=== PATIENT | male | born 1975 | race African-American/Black ===

== ENCOUNTER 2021-04-08 17:38 | Inpatient (IN) | payer OTHER, SELFPAY ==
[2021-04-08 18:25] LABS: #Monocytes 1.5 10x3/uL (0.0-1.1); #Neutrophils 13.8 10x3/uL (1.5-8.4); %Basophils 0.2 % (0.0-2.0); %Lymphocytes 7.1 % (18.0-47.0); %Monocytes 8.8 % (0.0-10.0); %Neutrophils 83.4 % (40.0-75.0); Hemoglobin 15.7 g/dL (13.5-17.5); Mean Corpuscular HGB CONC 27.5 g/dL (32.0-36.0); Mean Corpuscular Hemoglobin 28.5 pg (27.0-33.0); Mean Corpuscular Volume 103.4 fl (81.2-95.1); Mean Platelet Volume 12.4 fl (7.4-10.4); Platelet Count 428 10x3/uL (150-450); RBC Distribution Width 13.9 % (11.5-14.5); Red Blood Cell (RBC) Count 5.51 10x6/uL (4.32-5.72); White Blood Cell (WBC) Count 16.5 10x3/uL (3.5-10.5)
[2021-04-08] MEDS ORDERED: cefTRIAXone\\ROCEPHIN 2 GM VIAL ONE (18:27)
[2021-04-08 18:37] LABS: Actual Bicarbonate (HCO3v) 13 mEq/L (22-28); Calcium, Ionized (venous) 1.34 mmol/L (1.16-1.32); Chloride (VBG) 94 mmol/L (98-106); Hemoglobin (Hb) 17.2 g/dL (13.1-17.2); Potassium (VBG) 6.27 mmol/L (3.70-5.30); Puncture Site Other Site; Sodium 142.7 mmol/L (133-146)
[2021-04-08 18:45] LABS: ALT (SGPT) 75 U/L (8-55); AST (SGOT) 26 U/L (5-34); Albumin 4.5 g/dL (3.5-5.0); Alkaline Phosphatase 152 U/L (40-110); Anion Gap 36 mmol/L (10-20); BUN (Urea Nitrogen) 53 mg/dL (8.9-20.6); Bilirubin, Total 0.3 mg/dL (0.2-1.2); Calc. Creatinine Clearance 0 mL/min (70-130); Calcium 10.8 mg/dL (7.8-10.44); Carbon Dioxide 13 mmol/L (22-29); Chloride 92 mmol/L (98-107); Globulin 4.7 g/dL (2.4-3.5); Potassium 5.7 mmol/L (3.5-5.1); Protein, Total 9.2 g/dL (6.0-8.3); Sodium 135 mmol/L (136-145)
[2021-04-08 19:11] LABS: Glucose 1832 mg/dL (70-105)
[2021-04-08] MEDS ORDERED: INSULIN REGULAR IN 0.9 % NACL 100 UNIT/100 ML BAG ONE (19:13)
[2021-04-08] MEDS ORDERED: Insulin Regular 300 UNITS/3 ML VIAL ONE (19:13)
[2021-04-08 19:31] LABS: SARS-CoV-2 NAA Rapid Test Not Detected (NotDetected)
[2021-04-08 19:58] LABS: Bilirubin Neg (Negative); Blood, Urine 250 (Negative); Clarity Slightly Cloudy (Clear); Glucose, Urine (Dipstick) >=1000 mg/dL (Negative); Ketone, Urine 50 mg/dL (Negative); Leukocyte Negative (Negative); Nitrite Negative (Negative); Protein, Urine (Dipstick) 30 mg/dl (Neg-Trace); Urobilinogen Normal mg/dL (Less than 2)
[2021-04-08 20:07] LABS: RBC/HPF 0-3 HPF (0-3); Renal Epithelial 0-3 HPF (None Seen); Squamous Epithelial 0-3 HPF (0-3); WBC/HPF 0-3 HPF (0-3)
[2021-04-08 20:08] LABS: Bacteria/HPF Rare-Few HPF (None Seen)
[2021-04-08 20:30] LABS: Creatinine, Urine 32.21 mg/dL (63-166); Protein, Urine Random Quant 34 mg/dL (1-14)
[2021-04-08 20:39] LABS: Platelet Morphology Comment Appears Adequate
[2021-04-08] MEDS ORDERED: D5 1/2 NS w/20 mEq KCL 1,000 ML IV PRN (20:59)
[2021-04-08] MEDS ORDERED: Sodium Chloride 0.9% 1,000 ML IV PRN ×4 (20:59)
[2021-04-08] MEDS ORDERED: Electrolyte Replacement Protocol 1 EACH IVPB SCH ×2 (20:59→23:15)
[2021-04-08] MEDS ORDERED: Dextrose 5 %-0.45 % NaCl 1,000 ML IV PRN (20:59)
[2021-04-08] MEDS ORDERED: NS 0.9% w/ 20 MEQ KCL 1,000 ML IV PRN ×2 (20:59)
[2021-04-08 22:13] LABS: Lactic Acid 1.8 mmol/L (0.5-2.2)
[2021-04-08 22:28] VITALS: BMI 30.5
[2021-04-08 22:30] LABS: Anion Gap 29 mmol/L (10-20); BUN (Urea Nitrogen) 48 mg/dL (8.9-20.6); Calc. Creatinine Clearance 32 mL/min (70-130); Calcium 10.7 mg/dL (7.8-10.44); Carbon Dioxide 12 mmol/L (22-29); Chloride 114 mmol/L (98-107); Potassium 4.5 mmol/L (3.5-5.1); Sodium 150 mmol/L (136-145)
[2021-04-08 22:37] LABS: Glucose 1014 mg/dL (70-105); Phosphorus 1.9 mg/dL (2.3-4.7)
[2021-04-08] MEDS: Sodium Chloride 0.45% 1,000 ML IV SCH (23:35)
[2021-04-08] MEDS ORDERED: Potassium Phosphate 15 MMOL in Sodium Chloride 0.9% 250 ML 250 ML IVPB SCH (23:59)
[2021-04-09 00:55] LABS: Glucose 829 mg/dL (70-105)
[2021-04-09 01:24] LABS: Anion Gap 27 mmol/L (10-20); BUN (Urea Nitrogen) 45 mg/dL (8.9-20.6); Calc. Creatinine Clearance 35 mL/min (70-130); Carbon Dioxide 14 mmol/L (22-29); Chloride 119 mmol/L (98-107); Sodium 155 mmol/L (136-145)
[2021-04-09 01:47] LABS: Potassium 4.9 mmol/L (3.5-5.1)
[2021-04-09 02:02] LABS: Glucose 770 mg/dL (70-105)
[2021-04-09] MEDS ORDERED: Lorazepam 2 MG/ML VIAL ONE (02:14)
[2021-04-09] MEDS ORDERED: Sodium Chloride 0.45% 1,000 ML IV SCH (02:15)
[2021-04-09] MEDS ORDERED: Lorazepam 2 MG/ML VIAL SLOW IVP SCH ×2 (02:15→06:00)
[2021-04-09 02:22] LABS: Sodium, Urine Less than 20 mmol/L (Not Available)
[2021-04-09] MEDS: Dextrose 5% in Water 1,000 ML IV SCH ×5 (02:26→18:12)
[2021-04-09 03:00] LABS: Glucose 771 mg/dL (70-105)
[2021-04-09 04:34] LABS: Anion Gap 28 mmol/L (10-20); BUN (Urea Nitrogen) 46 mg/dL (8.9-20.6); Calc. Creatinine Clearance 38 mL/min (70-130); Calcium 10.3 mg/dL (7.8-10.44); Carbon Dioxide 12 mmol/L (22-29); Chloride 120 mmol/L (98-107); Magnesium 3.7 mg/dL (1.6-2.6); Sodium 156 mmol/L (136-145)
[2021-04-09 04:57] LABS: Glucose 773 mg/dL (70-105); Potassium 4.3 mmol/L (3.5-5.1)
[2021-04-09 04:58] LABS: Phosphorus 2.7 mg/dL (2.3-4.7)
[2021-04-09] MEDS: Sodium Chloride 0.45% 1,000 ML IV SCH (04:59)
[2021-04-09 05:30] LABS: Hemoglobin 16.2 g/dL (13.5-17.5); Mean Corpuscular HGB CONC 33.3 g/dL (32.0-36.0); Mean Corpuscular Hemoglobin 28.7 pg (27.0-33.0); Mean Platelet Volume 11.8 fl (7.4-10.4); Platelet Count 405 10x3/uL (150-450); RBC Distribution Width 13.4 % (11.5-14.5); Red Blood Cell (RBC) Count 5.65 10x6/uL (4.32-5.72); White Blood Cell (WBC) Count 18.1 10x3/uL (3.5-10.5)
[2021-04-09 05:33] LABS: Band 3 % (5-11); Lymphocytes 12 % (21-51); Monocytes 6 % (0-10); Neutrophil 79 % (42-75)
[2021-04-09 05:34] LABS: Platelet Morphology Comment Appears Increased
[2021-04-09 05:35] LABS: MDiff Complete? YES
[2021-04-09 05:39] LABS: Anion Gap 24 mmol/L (10-20); BUN (Urea Nitrogen) 44 mg/dL (8.9-20.6); Calc. Creatinine Clearance 40 mL/min (70-130); Calcium 10.4 mg/dL (7.8-10.44); Carbon Dioxide 16 mmol/L (22-29); Chloride 119 mmol/L (98-107); Potassium 3.9 mmol/L (3.5-5.1); Sodium 155 mmol/L (136-145)
[2021-04-09 05:48] LABS: Glucose 707 mg/dL (70-105)
[2021-04-09 07:05] LABS: Glucose 668 mg/dL (70-105)
[2021-04-09 08:25] LABS: Glucose 594 mg/dL (70-105)
[2021-04-09] MEDS: Enoxaparin Sodium 40 MG/0.4 ML SYRINGE SC SCH (09:02)
[2021-04-09] MEDS: Pantoprazole 40 MG VIAL IVP SCH (09:02)
[2021-04-09] MEDS: INSULIN REGULAR IN 0.9 % NACL 100 UNIT in Premix Bag 1 BAG IVPB SCH ×2 (09:09→18:42)
[2021-04-09] MEDS: Sodium Bicarbonate 75 MEQ in Sterile Water Injection 1,000 ML IV SCH ×3 (09:15→22:49)
[2021-04-09 09:42] LABS: Anion Gap 22 mmol/L (10-20); BUN (Urea Nitrogen) 42 mg/dL (8.9-20.6); Calc. Creatinine Clearance 42 mL/min (70-130); Calcium 10.6 mg/dL (7.8-10.44); Carbon Dioxide 20 mmol/L (22-29); Chloride 125 mmol/L (98-107); Glucose 499 mg/dL (70-105); Magnesium 3.5 mg/dL (1.6-2.6); Phosphorus 1.5 mg/dL (2.3-4.7); Potassium 3.9 mmol/L (3.5-5.1); Sodium 163 mmol/L (136-145)
[2021-04-09] MEDS ORDERED: Potassium Phosphate 30 MMOL in Sodium Chloride 0.9% 500 ML IVPB SCH ×2 (10:30→17:30)
[2021-04-09 13:57] LABS: Anion Gap 20 mmol/L (10-20); BUN (Urea Nitrogen) 42 mg/dL (8.9-20.6); Calc. Creatinine Clearance 43 mL/min (70-130); Calcium 9.9 mg/dL (7.8-10.44); Carbon Dioxide 22 mmol/L (22-29); Chloride 124 mmol/L (98-107); Glucose 432 mg/dL (70-105); Magnesium 3.1 mg/dL (1.6-2.6); Phosphorus 1.6 mg/dL (2.3-4.7); Potassium 3.8 mmol/L (3.5-5.1); Sodium 162 mmol/L (136-145)
[2021-04-09] MEDS: cefTRIAXone\\ROCEPHIN 2 GM in Sodium Chloride 0.9% 100 ML IVPB SCH (18:11)
[2021-04-09 18:55] LABS: Anion Gap 19 mmol/L (10-20); BUN (Urea Nitrogen) 40 mg/dL (8.9-20.6); Calc. Creatinine Clearance 49 mL/min (70-130); Calcium 9.6 mg/dL (7.8-10.44); Carbon Dioxide 21 mmol/L (22-29); Chloride 119 mmol/L (98-107); Glucose 452 mg/dL (70-105); Magnesium 2.8 mg/dL (1.6-2.6); Phosphorus 5.5 mg/dL (2.3-4.7); Potassium 4.8 mmol/L (3.5-5.1); Sodium 154 mmol/L (136-145)
[2021-04-09] MEDS: Lorazepam 2 MG/ML VIAL SLOW IVP PRN (21:57)
[2021-04-09 23:23] LABS: Anion Gap 19 mmol/L (10-20); BUN (Urea Nitrogen) 39 mg/dL (8.9-20.6); Calc. Creatinine Clearance 51 mL/min (70-130); Calcium 8.9 mg/dL (7.8-10.44); Carbon Dioxide 14 mmol/L (22-29); Chloride 125 mmol/L (98-107); Glucose 264 mg/dL (70-105); Magnesium 2.4 mg/dL (1.6-2.6); Phosphorus 3.4 mg/dL (2.3-4.7); Potassium 4.5 mmol/L (3.5-5.1); Sodium 153 mmol/L (136-145)
[2021-04-10] MEDS: Dextrose 5% in Water 1,000 ML IV SCH ×2 (00:56→06:37)
[2021-04-10] MEDS: Lorazepam 2 MG/ML VIAL SLOW IVP PRN (02:33)
[2021-04-10] MEDS: Sodium Bicarbonate 75 MEQ in Sterile Water Injection 1,000 ML IV SCH ×5 (03:37→18:52)
[2021-04-10] MEDS ORDERED: Lorazepam 2 MG/ML VIAL ONE (04:26)
[2021-04-10] MEDS ORDERED: Lorazepam 2 MG/ML VIAL SLOW IVP SCH (05:00)
[2021-04-10 05:21] LABS: #Monocytes 1.4 10x3/uL (0.0-1.1); #Neutrophils 8.7 10x3/uL (1.5-8.4); %Basophils 0.3 % (0.0-2.0); %Eosinophils 0.2 % (0.0-6.0); %Lymphocytes 19.4 % (18.0-47.0); %Monocytes 10.8 % (0.0-10.0); %Neutrophils 68.7 % (40.0-75.0); Hemoglobin 15.3 g/dL (13.5-17.5); Mean Corpuscular HGB CONC 33.4 g/dL (32.0-36.0); Mean Corpuscular Hemoglobin 28.7 pg (27.0-33.0); Mean Corpuscular Volume 85.9 fl (81.2-95.1); Mean Platelet Volume 11.8 fl (7.4-10.4); Platelet Count 269 10x3/uL (150-450); RBC Distribution Width 13.7 % (11.5-14.5); Red Blood Cell (RBC) Count 5.33 10x6/uL (4.32-5.72); White Blood Cell (WBC) Count 12.7 10x3/uL (3.5-10.5)
[2021-04-10 05:28] LABS: Albumin 3.4 g/dL (3.5-5.0); Anion Gap 19 mmol/L (10-20); Anion Gap 20 mmol/L (10-20); BUN (Urea Nitrogen) 36 mg/dL (8.9-20.6); Calc. Creatinine Clearance 52 mL/min (70-130); Calcium 8.7 mg/dL (7.8-10.44); Calcium 8.8 mg/dL (7.8-10.44); Carbon Dioxide 25 mmol/L (22-29); Carbon Dioxide 26 mmol/L (22-29); Chloride 113 mmol/L (98-107); Glucose 180 mg/dL (70-105); Glucose 183 mg/dL (70-105); Magnesium 2.2 mg/dL (1.6-2.6); Phosphorus 3.2 mg/dL (2.3-4.7); Phosphorus 3.3 mg/dL (2.3-4.7); Potassium 3.3 mmol/L (3.5-5.1); Sodium 155 mmol/L (136-145)
[2021-04-10] MEDS: INSULIN REGULAR IN 0.9 % NACL 100 UNIT in Premix Bag 1 BAG IVPB SCH ×2 (06:31→17:02)
[2021-04-10] MEDS ORDERED: Dextrose 5 %-0.45 % NaCl 1,000 ML IV SCH (07:00)
[2021-04-10] MEDS ORDERED: Potassium Chloride 10 MEQ in Premix Bag 1 BAG IVPB SCH (08:00)
[2021-04-10] MEDS: Enoxaparin Sodium 40 MG/0.4 ML SYRINGE SC SCH (08:31)
[2021-04-10] MEDS: Pantoprazole 40 MG VIAL IVP SCH (08:31)
[2021-04-10] MEDS: D5 1/4 NS 1,000 ML IV SCH ×4 (08:33→18:52)
[2021-04-10] MEDS ORDERED: Potassium Phosphate 30 MMOL in Sodium Chloride 0.9% 500 ML IVPB SCH (09:00)
[2021-04-10 09:30] LABS: Anion Gap 18 mmol/L (10-20); BUN (Urea Nitrogen) 34 mg/dL (8.9-20.6); BUN/Creatinine Ratio 14.41; Calc. Creatinine Clearance 52 mL/min (70-130); Calcium 8.3 mg/dL (7.8-10.44); Carbon Dioxide 29 mmol/L (22-29); Chloride 108 mmol/L (98-107); Glucose 221 mg/dL (70-105); Phosphorus 3.6 mg/dL (2.3-4.7); Potassium 3.8 mmol/L (3.5-5.1); Sodium 151 mmol/L (136-145)
[2021-04-10 14:18] LABS: Albumin 2.8 g/dL (3.5-5.0); Anion Gap 18 mmol/L (10-20); BUN (Urea Nitrogen) 31 mg/dL (8.9-20.6); BUN/Creatinine Ratio 13.42; Calc. Creatinine Clearance 54 mL/min (70-130); Calcium 7.9 mg/dL (7.8-10.44); Carbon Dioxide 25 mmol/L (22-29); Chloride 107 mmol/L (98-107); Glucose 278 mg/dL (70-105); Phosphorus 3.2 mg/dL (2.3-4.7); Potassium 3.6 mmol/L (3.5-5.1); Sodium 146 mmol/L (136-145)
[2021-04-10] MEDS: cefTRIAXone\\ROCEPHIN 2 GM in Sodium Chloride 0.9% 100 ML IVPB SCH (17:08)
[2021-04-10] MEDS ORDERED: Norepinephrine 8 MG/0.9% NS 0 ML ONE (17:57)
[2021-04-10] MEDS: Sodium Chloride 0.45% 1,000 ML IV SCH (20:40)
[2021-04-10 21:36] LABS: Albumin 2.8 g/dL (3.5-5.0); Anion Gap 21 mmol/L (10-20); BUN (Urea Nitrogen) 28 mg/dL (8.9-20.6); BUN/Creatinine Ratio 12.67; Calc. Creatinine Clearance 56 mL/min (70-130); Calcium 7.7 mg/dL (7.8-10.44); Carbon Dioxide 26 mmol/L (22-29); Chloride 103 mmol/L (98-107); Glucose 195 mg/dL (70-105); Magnesium 1.7 mg/dL (1.6-2.6); Phosphorus 4.5 mg/dL (2.3-4.7); Potassium 3.8 mmol/L (3.5-5.1); Sodium 146 mmol/L (136-145)
[2021-04-10] MEDS ORDERED: Sodium Bicarbonate 75 MEQ in Sterile Water Injection 1,000 ML IV SCH (22:30)
[2021-04-11] MEDS: INSULIN REGULAR IN 0.9 % NACL 100 UNIT in Premix Bag 1 BAG IVPB SCH (02:23)
[2021-04-11] MEDS: D5 1/4 NS 1,000 ML IV SCH (05:57)
[2021-04-11 06:31] LABS: Albumin 2.7 g/dL (3.5-5.0); Anion Gap 16 mmol/L (10-20); BUN (Urea Nitrogen) 26 mg/dL (8.9-20.6); BUN/Creatinine Ratio 11.93; Calc. Creatinine Clearance 57 mL/min (70-130); Calcium 7.4 mg/dL (7.8-10.44); Carbon Dioxide 26 mmol/L (22-29); Chloride 105 mmol/L (98-107); Glucose 206 mg/dL (70-105); Phosphorus 4.1 mg/dL (2.3-4.7); Potassium 3.3 mmol/L (3.5-5.1); Sodium 144 mmol/L (136-145)
[2021-04-11] MEDS: Pantoprazole 40 MG VIAL IVP SCH (09:00)
[2021-04-11] MEDS: Enoxaparin Sodium 40 MG/0.4 ML SYRINGE SC SCH (09:00)
[2021-04-11] MEDS ORDERED: Sodium Bicarbonate 75 MEQ in Sterile Water Injection 1,000 ML IV SCH (09:14)
[2021-04-11] MEDS ORDERED: Potassium Chloride 20 MEQ TAB PO SCH (09:30)
[2021-04-11] MEDS ORDERED: Lantus 1000 UNITS/10 ML VIAL SC SCH ×2 (09:30→21:00)
[2021-04-11 10:43] LABS: #Neutrophils 5.7 10x3/uL (1.5-8.4); %Basophils 0.1 % (0.0-2.0); %Eosinophils 0.4 % (0.0-6.0); %Lymphocytes 20.3 % (18.0-47.0); %Monocytes 11.6 % (0.0-10.0); %Neutrophils 67.1 % (40.0-75.0); Hemoglobin 12.9 g/dL (13.5-17.5); Mean Corpuscular HGB CONC 32.9 g/dL (32.0-36.0); Mean Corpuscular Hemoglobin 28.5 pg (27.0-33.0); Mean Corpuscular Volume 86.7 fl (81.2-95.1); Mean Platelet Volume 11.1 fl (7.4-10.4); Platelet Count 168 10x3/uL (150-450); RBC Distribution Width 12.9 % (11.5-14.5); Red Blood Cell (RBC) Count 4.52 10x6/uL (4.32-5.72); White Blood Cell (WBC) Count 8.4 10x3/uL (3.5-10.5)
[2021-04-11] MEDS ORDERED: Dextrose 50% Abboject 50 ML SYRINGE SLOW IVP PRN (11:02)
[2021-04-11] MEDS ORDERED: Dextrose 5% in Water 1,000 ML IV PRN (11:02)
[2021-04-11] MEDS: Lactated Ringer's 1,000 ML IV SCH (12:02)
[2021-04-11 15:28] LABS: Anion Gap 13 mmol/L (10-20); BUN (Urea Nitrogen) 28 mg/dL (8.9-20.6); BUN/Creatinine Ratio 12.33; Calc. Creatinine Clearance 55 mL/min (70-130); Calcium 8.3 mg/dL (7.8-10.44); Carbon Dioxide 29 mmol/L (22-29); Chloride 106 mmol/L (98-107); Glucose 239 mg/dL (70-105); Phosphorus 3.3 mg/dL (2.3-4.7); Potassium 3.4 mmol/L (3.5-5.1); Sodium 145 mmol/L (136-145)
[2021-04-11] MEDS: HumaLOG 300 UNITS/3 ML VIAL SC PRN ×2 (17:17→22:25)
[2021-04-11] MEDS: cefTRIAXone\\ROCEPHIN 2 GM in Sodium Chloride 0.9% 100 ML IVPB SCH (17:17)
[2021-04-12] MEDS: Lactated Ringer's 1,000 ML IV SCH ×5 (03:01→20:15)
[2021-04-12 04:17] LABS: #Eosinphils 0.1 10x3/uL (0.0-0.5); #Monocytes 0.9 10x3/uL (0.0-1.1); #Neutrophils 4.2 10x3/uL (1.5-8.4); %Basophils 0.2 % (0.0-2.0); %Eosinophils 1.2 % (0.0-6.0); %Lymphocytes 22.3 % (18.0-47.0); %Monocytes 13.5 % (0.0-10.0); %Neutrophils 62.3 % (40.0-75.0); Hemoglobin 12.1 g/dL (13.5-17.5); Mean Corpuscular HGB CONC 32.5 g/dL (32.0-36.0); Mean Corpuscular Hemoglobin 28.7 pg (27.0-33.0); Mean Corpuscular Volume 88.4 fl (81.2-95.1); Platelet Count 147 10x3/uL (150-450); RBC Distribution Width 13.1 % (11.5-14.5); Red Blood Cell (RBC) Count 4.21 10x6/uL (4.32-5.72); White Blood Cell (WBC) Count 6.7 10x3/uL (3.5-10.5)
[2021-04-12 04:25] LABS: Phosphorus 3.3 mg/dL (2.3-4.7)
[2021-04-12 04:27] LABS: ALT (SGPT) 199 U/L (8-55); AST (SGOT) 267 U/L (5-34); Albumin 2.8 g/dL (3.5-5.0); Alkaline Phosphatase 92 U/L (40-110); Anion Gap 13 mmol/L (10-20); BUN (Urea Nitrogen) 31 mg/dL (8.9-20.6); BUN/Creatinine Ratio 13.96; Bilirubin, Total 0.5 mg/dL (0.2-1.2); Calc. Creatinine Clearance 56 mL/min (70-130); Calcium 8.7 mg/dL (7.8-10.44); Carbon Dioxide 26 mmol/L (22-29); Chloride 108 mmol/L (98-107); Globulin 2.9 g/dL (2.4-3.5); Glucose 288 mg/dL (70-105); Magnesium 2.2 mg/dL (1.6-2.6); Phosphorus 3.3 mg/dL (2.3-4.7); Potassium 3.6 mmol/L (3.5-5.1); Protein, Total 5.7 g/dL (6.0-8.3); Sodium 143 mmol/L (136-145)
[2021-04-12 08:48] LABS: Hemoglobin A1c 13.1 % (4.0-6.0)
[2021-04-12] MEDS: Enoxaparin Sodium 40 MG/0.4 ML SYRINGE SC SCH (08:59)
[2021-04-12] MEDS ORDERED: Lantus 1000 UNITS/10 ML VIAL SC SCH (09:00)
[2021-04-12] MEDS: Pantoprazole 40 MG VIAL IVP SCH (09:00)
[2021-04-12] MEDS: Lantus 1000 UNITS/10 ML VIAL SC SCH ×3 (09:01→20:13)
[2021-04-12] MEDS: HumaLOG 300 UNITS/3 ML VIAL SC PRN ×4 (09:02→21:43)
[2021-04-12] MEDS ORDERED: HumaLOG 300 UNITS/3 ML VIAL SC SCH ×2 (12:00→17:00)
[2021-04-12] MEDS: cefTRIAXone\\ROCEPHIN 2 GM in Sodium Chloride 0.9% 100 ML IVPB SCH (18:25)
[2021-04-13] MEDS: Lactated Ringer's 1,000 ML IV SCH ×5 (00:32→17:15)
[2021-04-13 03:54] LABS: #Eosinphils 0.1 10x3/uL (0.0-0.5); #Neutrophils 3.8 10x3/uL (1.5-8.4); %Basophils 0.3 % (0.0-2.0); %Lymphocytes 23.7 % (18.0-47.0); %Monocytes 14.9 % (0.0-10.0); %Neutrophils 58.5 % (40.0-75.0); Hemoglobin 11.6 g/dL (13.5-17.5); Mean Corpuscular HGB CONC 31.9 g/dL (32.0-36.0); Mean Corpuscular Hemoglobin 28.7 pg (27.0-33.0); Mean Corpuscular Volume 90.1 fl (81.2-95.1); Mean Platelet Volume 11.9 fl (7.4-10.4); Platelet Count 147 10x3/uL (150-450); RBC Distribution Width 13.1 % (11.5-14.5); Red Blood Cell (RBC) Count 4.04 10x6/uL (4.32-5.72); White Blood Cell (WBC) Count 6.5 10x3/uL (3.5-10.5)
[2021-04-13 04:20] LABS: ALT (SGPT) 209 U/L (8-55); AST (SGOT) 246 U/L (5-34); Alkaline Phosphatase 138 U/L (40-110); Anion Gap 13 mmol/L (10-20); BUN (Urea Nitrogen) 31 mg/dL (8.9-20.6); Bilirubin, Total 0.3 mg/dL (0.2-1.2); Calc. Creatinine Clearance 62 mL/min (70-130); Calcium 9.8 mg/dL (7.8-10.44); Carbon Dioxide 24 mmol/L (22-29); Chloride 113 mmol/L (98-107); Globulin 2.9 g/dL (2.4-3.5); Glucose 240 mg/dL (70-105); Magnesium 2.1 mg/dL (1.6-2.6); Potassium 3.8 mmol/L (3.5-5.1); Protein, Total 5.9 g/dL (6.0-8.3); Sodium 146 mmol/L (136-145)
[2021-04-13 04:31] LABS: CK (CPK) 4264 U/L (30-200)
[2021-04-13] MEDS: HumaLOG 300 UNITS/3 ML VIAL SC PRN ×2 (05:14→08:12)
[2021-04-13] MEDS ORDERED: HumaLOG 300 UNITS/3 ML VIAL SC SCH (08:00)
[2021-04-13] MEDS: HumaLOG 300 UNITS/3 ML VIAL SC SCH ×3 (08:11→17:26)
[2021-04-13] MEDS: Enoxaparin Sodium 40 MG/0.4 ML SYRINGE SC SCH (08:12)
[2021-04-13] MEDS: Pantoprazole 40 MG VIAL IVP SCH (08:12)
[2021-04-13] MEDS ORDERED: Lantus 1000 UNITS/10 ML VIAL SC SCH (09:00)
[2021-04-13] MEDS ORDERED: hydrALAZINE 20 MG/ML VIAL SLOW IVP PRN (09:33)
[2021-04-13] MEDS: Sodium Chloride 0.9% 100 ML ONE ×2 (09:47→09:48)
[2021-04-13] MEDS: cefTRIAXone\\ROCEPHIN 2 GM in Sodium Chloride 0.9% 100 ML IVPB SCH (17:26)
[2021-04-13] MEDS: Lantus 1000 UNITS/10 ML VIAL SC SCH (21:10)
[2021-04-14] MEDS: Lactated Ringer's 1,000 ML IV SCH ×5 (00:32→22:41)
[2021-04-14] MEDS: Enoxaparin Sodium 40 MG/0.4 ML SYRINGE SC SCH (08:12)
[2021-04-14] MEDS: Pantoprazole 40 MG VIAL IVP SCH (08:12)
[2021-04-14 08:39] LABS: #Eosinphils 0.2 10x3/uL (0.0-0.5); #Monocytes 1.1 10x3/uL (0.0-1.1); #Neutrophils 4.2 10x3/uL (1.5-8.4); %Basophils 0.3 % (0.0-2.0); %Eosinophils 2.3 % (0.0-6.0); %Lymphocytes 24.2 % (18.0-47.0); %Monocytes 14.5 % (0.0-10.0); %Neutrophils 57.9 % (40.0-75.0); Hemoglobin 11.8 g/dL (13.5-17.5); Mean Corpuscular HGB CONC 32.9 g/dL (32.0-36.0); Mean Corpuscular Hemoglobin 28.7 pg (27.0-33.0); Mean Corpuscular Volume 87.3 fl (81.2-95.1); Platelet Count 216 10x3/uL (150-450); RBC Distribution Width 12.9 % (11.5-14.5); Red Blood Cell (RBC) Count 4.11 10x6/uL (4.32-5.72); White Blood Cell (WBC) Count 7.2 10x3/uL (3.5-10.5)
[2021-04-14 08:45] LABS: ALT (SGPT) 217 U/L (8-55); AST (SGOT) 212 U/L (5-34); Albumin 3.2 g/dL (3.5-5.0); Alkaline Phosphatase 131 U/L (40-110); Anion Gap 12 mmol/L (10-20); BUN (Urea Nitrogen) 24 mg/dL (8.9-20.6); Bilirubin, Total 0.4 mg/dL (0.2-1.2); CK (CPK) 2096 U/L (30-200); Calc. Creatinine Clearance 66 mL/min (70-130); Carbon Dioxide 26 mmol/L (22-29); Chloride 110 mmol/L (98-107); Globulin 3.3 g/dL (2.4-3.5); Glucose 101 mg/dL (70-105); Potassium 3.7 mmol/L (3.5-5.1); Protein, Total 6.5 g/dL (6.0-8.3); Sodium 144 mmol/L (136-145)
[2021-04-14] MEDS: HumaLOG 300 UNITS/3 ML VIAL SC SCH ×3 (09:00→17:00)
[2021-04-14] MEDS: Lantus 1000 UNITS/10 ML VIAL SC SCH ×2 (09:00→22:38)
[2021-04-14] MEDS: HumaLOG 300 UNITS/3 ML VIAL SC PRN (12:20)
[2021-04-14] MEDS: Acetaminophen 325 MG TAB PO PRN ×2 (14:00→21:44)
[2021-04-15] MEDS: Lactated Ringer's 1,000 ML IV SCH ×4 (04:27→21:15)
[2021-04-15 06:02] LABS: ALT (SGPT) 175 U/L (8-55); AST (SGOT) 127 U/L (5-34); Alkaline Phosphatase 122 U/L (40-110); Anion Gap 14 mmol/L (10-20); BUN (Urea Nitrogen) 20 mg/dL (8.9-20.6); Bilirubin, Total 0.3 mg/dL (0.2-1.2); CK (CPK) 1181 U/L (30-200); Calc. Creatinine Clearance 75 mL/min (70-130); Calcium 9.5 mg/dL (7.8-10.44); Carbon Dioxide 22 mmol/L (22-29); Chloride 109 mmol/L (98-107); Globulin 3.1 g/dL (2.4-3.5); Glucose 140 mg/dL (70-105); Potassium 3.7 mmol/L (3.5-5.1); Protein, Total 6.1 g/dL (6.0-8.3); Sodium 141 mmol/L (136-145)
[2021-04-15] MEDS: Pantoprazole 40 MG VIAL IVP SCH (08:48)
[2021-04-15] MEDS: Enoxaparin Sodium 40 MG/0.4 ML SYRINGE SC SCH (08:48)
[2021-04-15] MEDS: HumaLOG 300 UNITS/3 ML VIAL SC SCH ×3 (08:49→17:29)
[2021-04-15] MEDS: Lantus 1000 UNITS/10 ML VIAL SC SCH ×2 (08:49→23:11)
[2021-04-16] MEDS: Lactated Ringer's 1,000 ML IV SCH ×2 (03:34→11:43)
[2021-04-16 04:57] LABS: ALT (SGPT) 152 U/L (8-55); AST (SGOT) 85 U/L (5-34); Albumin 3.2 g/dL (3.5-5.0); Alkaline Phosphatase 117 U/L (40-110); Anion Gap 13 mmol/L (10-20); BUN (Urea Nitrogen) 18 mg/dL (8.9-20.6); Bilirubin, Total 0.3 mg/dL (0.2-1.2); CK (CPK) 847 U/L (30-200); Calc. Creatinine Clearance 77 mL/min (70-130); Calcium 9.4 mg/dL (7.8-10.44); Carbon Dioxide 24 mmol/L (22-29); Chloride 108 mmol/L (98-107); Globulin 3.3 g/dL (2.4-3.5); Glucose 119 mg/dL (70-105); Magnesium 1.8 mg/dL (1.6-2.6); Potassium 3.5 mmol/L (3.5-5.1); Protein, Total 6.5 g/dL (6.0-8.3); Sodium 141 mmol/L (136-145)
[2021-04-16 05:36] LABS: Hemoglobin 11.2 g/dL (13.5-17.5); Mean Corpuscular HGB CONC 33.5 g/dL (32.0-36.0); Mean Corpuscular Hemoglobin 28.9 pg (27.0-33.0); Mean Corpuscular Volume 86.1 fl (81.2-95.1); Mean Platelet Volume 10.1 fl (7.4-10.4); Platelet Count 311 10x3/uL (150-450); RBC Distribution Width 12.2 % (11.5-14.5); Red Blood Cell (RBC) Count 3.88 10x6/uL (4.32-5.72); White Blood Cell (WBC) Count 7.7 10x3/uL (3.5-10.5)
[2021-04-16 05:37] LABS: MDiff Complete? YES
[2021-04-16 05:41] LABS: Band 2 % (5-11); Eosinophils 3 % (0-10); Lymphocytes 38 % (21-51); Monocytes 17 % (0-10); Neutrophil 40 % (42-75)
[2021-04-16 05:43] LABS: Platelet Morphology Comment Appears Adequate; RBC Morphology Normal
[2021-04-16] MEDS: Enoxaparin Sodium 40 MG/0.4 ML SYRINGE SC SCH (08:35)
[2021-04-16] MEDS: Lantus 1000 UNITS/10 ML VIAL SC SCH (08:36)
[2021-04-16] MEDS: Pantoprazole 40 MG VIAL IVP SCH (08:36)
[2021-04-16] MEDS: HumaLOG 300 UNITS/3 ML VIAL SC SCH ×2 (08:36→11:42)
[2021-04-16 12:04] VITALS: BP 126/84; TEMP 98.9
== END 2021-04-16 16:30 | disposition home or self-care (01) | DRG 682 ==
LOC: CSHERS 17:38 → CSHIMCU 22:13 → CSHTELE 04-13 09:47
PROVIDERS: ADMIT Family Medicine; ATTEND Internal Medicine
DX: N17.9 Acute kidney failure, unspecified (principal); E11.10 Type 2 diabetes mellitus with ketoacidosis without coma; G93.41 Metabolic encephalopathy; E87.0 Hyperosmolality and hypernatremia; M62.82 Rhabdomyolysis; E86.0 Dehydration; Z20.822 Contact with and (suspected) exposure to COVID-19; E87.5 Hyperkalemia; E83.52 Hypercalcemia; Z78.1 Physical restraint status; N40.1 Benign prostatic hyperplasia with lower urinary tract symptoms; R33.8 Other retention of urine; K76.0 Fatty (change of) liver, not elsewhere classified
CPT/HCPCS: 0240U; 36415; 36416; 51702; 70450; 71045; 76770; 80048; 80053; 80069; 81003; 81015; 82010; 82306; 82550; 82570; 82805; 83036; 83605; 83735; 83930; 84100; 84156; 84300; 84484; 85025; 87040; 87086; 93005; 96365; 96366; 96367; A4217; C9113; J0696; J1650; J1815; J1956; J2060; J3480; J3490; J7030; J7120